=== PATIENT | male | born 1995 | race Caucasian/White ===

== ENCOUNTER 2017-11-06 09:12 | Emergency (ER) | payer SELFPAY | END 2017-11-06 10:04 | disposition home or self-care (01) | LOC: ER 09:12 | DX: M43.6 Torticollis (principal) | CPT/HCPCS: 99283 ==

== ENCOUNTER 2017-11-10 16:51 | Emergency (ER) | payer SELFPAY | END 2017-11-10 17:38 | disposition home or self-care (01) | LOC: ER 16:51 | DX: M43.6 Torticollis (principal); F41.9 Anxiety disorder, unspecified; F12.10 Cannabis abuse, uncomplicated | CPT/HCPCS: 99283 ==